=== PATIENT | female | born 1970 | race Caucasian/White ===

== ENCOUNTER 2017-09-05 09:15 | Inpatient (IN) | payer BC ==
[~2017-09-05] VITALS: Ht 162.6 cm; Wt 75.1 kg
[2017-09-05 09:22] VITALS: BP_SYST 122
[2017-09-05 10:01] LABS: BILIRUBIN,URINE NEGATIVE (NEGATIVE); BLOOD, URINE NEGATIVE (NEGATIVE); CLARITY/URINE CLEAR (CLEAR); COLOR,URINE YELLOW (YELLOW); GLUCOSE,URINE NEGATIVE (NEGATIVE); KETONES,URINE NEGATIVE (NEGATIVE); LEUKOCYTE ESTERASE ,URINE NEGATIVE (NEGATIVE); NITRITE, URINE NEGATIVE (NEGATIVE); PROTEIN URINE NEGATIVE (NEGATIVE); UROBILINOGEN,URINE 0.2 (0.2-1.0)
[2017-09-05 10:24] LABS: HEMATOCRIT 32.7 % (36-48); HEMOGLOBIN 11.1 g/dL (12.0-16.0); MEAN CORPUSCULAR HEMOGLOBIN 30 pg (27-31); MEAN CORPUSCULAR HGB CONC 34 % (32-36); MEAN CORPUSCULAR VOLUME 90 fL (79.0-98.0); PLATELET COUNT (AUTO) 423 K/uL (130-430); RED BLOOD CELL COUNT(AUTO) 3.65 MIL/uL (4.2-6.2); WHITE BLOOD COUNT (AUTO) 4.5 K/uL (4.8-10.8)
[2017-09-05 10:27] LABS: PROTHROMBIN TIME 10.1 SECS (9.5-12.5)
[2017-09-05 10:29] LABS: CALCIUM 8.8 mg/dL (8.4-11.0); CREATININE 0.77 mg/dL (0.55-1.30); POTASSIUM 3.7 mmol/L (3.5-5.1)
[2017-09-05 10:33] LABS: ALBUMIN 3.7 g/dL (3.4-4.8); TOTAL BILIRUBIN 0.4 mg/dL (0.0-1.0)
[2017-09-05] MEDS ORDERED: PANTOPRAZOLE SODIUM 40 MG/VIAL (PROTONIX) IVP ONE (10:45)
[2017-09-05 10:53] LABS: BAND % (MANUAL) 3 % (0-6); BASOPHILS % (MANUAL) 0 % (0-2); EOSINOPHILS % (MANUAL) 3 % (0-7); LYMPHOCYTES % (MANUAL) 29 % (20-46); MONOCYTES % (MANUAL) 7 % (0-11)
[2017-09-05] MEDS ORDERED: SUCR1ORA2 PO (11:01)
[2017-09-05] MEDS ORDERED: HYDR-1189 PO (11:02)
[2017-09-05] MEDS ORDERED: CYCL-10 PO (11:02)
[2017-09-05 12:58] VITALS: BP_SYST 131
[2017-09-05] MEDS ORDERED: CYCLOBENZAPRINE HCL 10 MG TABLET (FLEXERIL) PO PRN (14:30)
[2017-09-05] MEDS ORDERED: HYDROcodone/ACETAMIN 5-325 MG TAB (NORCO/ VICODIN) PO PRN (14:30)
[2017-09-05] MEDS ORDERED: LACTULOSE 20 GM/30 ML UDC PO ONE (15:15)
[2017-09-05] MEDS ORDERED: ONDANSETRON HCL 4 MG/2 ML VIAL IVP PRN (15:15)
[2017-09-05] MEDS: SUCRALFATE 1 GM/10 ML UDC PO SCH ×2 (16:23→20:25)
[2017-09-05] MEDS ORDERED: MAGNESIUM CITRATE 300 ML ORAL SOLUTION PO ONE (19:45)
[2017-09-05 20:00] VITALS: BP_SYST 120
[2017-09-05] MEDS: PANTOPRAZOLE GRANULES PACKET 40 MG GT SCH (20:25)
[2017-09-06 00:14] VITALS: BP_SYST 120
[2017-09-06] MEDS: MORPHINE 4 MG/ML INJ. SYRINGE IVP PRN ×2 (00:30→07:28)
[2017-09-06 06:27] LABS: BASOPHILS % (AUTO) 0.8 % (0.0-2.0); EOSINOPHILS # (AUTO) 0.2 K/uL (0.0-0.4); EOSINOPHILS % (AUTO) 3.6 % (0.0-4.0); HEMATOCRIT 32.9 % (36-48); HEMOGLOBIN 11.3 g/dL (12.0-16.0); LYMPHOCYTES # (AUTO) 1.8 K/uL (1.0-5.5); LYMPHOCYTES % (AUTO) 39.8 % (20.5-51.5); MEAN CORPUSCULAR HEMOGLOBIN 31 pg (27-31); MEAN CORPUSCULAR HGB CONC 35 % (32-36); MEAN CORPUSCULAR VOLUME 89 fL (79.0-98.0); MONOCYTES # (AUTO) 0.3 K/uL (0.0-1.0); MONOCYTES % (AUTO) 7.2 % (1.7-9.3); NEUTROPHILS # (AUTO) 2.3 K/uL (1.8-7.7); NEUTROPHILS % (AUTO) 48.6 % (40.0-70.0); PLATELET COUNT (AUTO) 423 K/uL (130-430); RED BLOOD CELL COUNT(AUTO) 3.69 MIL/uL (4.2-6.2); RED CELL DISTRIBUTION WIDTH 12.9 % (9.0-15.0); WHITE BLOOD COUNT (AUTO) 4.6 K/uL (4.8-10.8)
[2017-09-06 06:40] LABS: CALCIUM 8.6 mg/dL (8.4-11.0); CREATININE 0.81 mg/dL (0.55-1.30); POTASSIUM 3.3 mmol/L (3.5-5.1)
[2017-09-06 08:00] VITALS: BP_SYST 134
[2017-09-06] MEDS: SUCRALFATE 1 GM/10 ML UDC PO SCH ×3 (09:00→21:33)
[2017-09-06] MEDS: PANTOPRAZOLE GRANULES PACKET 40 MG GT SCH ×2 (09:00→21:35)
[2017-09-06] MEDS ORDERED: SIMETHICONE 40 MG/0.6 ML ML ONE (09:33)
[2017-09-06 12:50] VITALS: BP_SYST 123
[2017-09-06] MEDS: MIDAZOLAM HCL 5 MG/5 ML VIAL ONE ×5 (15:25→15:36)
[2017-09-06] MEDS: MEPERIDINE HCL/PF 100 MG/ML AMP ONE ×3 (15:25→15:34)
[2017-09-06] MEDS ORDERED: LUBIPROSTONE 24 MCG CAPSULE PO ONE (15:45)
[2017-09-06 16:34] VITALS: BP_SYST 126
[2017-09-06] MEDS: MINERAL OIL 30 ML UDC PO SCH ×2 (18:10→23:43)
[2017-09-06 20:15] VITALS: BP_SYST 156
[2017-09-06] MEDS: LUBIPROSTONE 24 MCG CAPSULE PO SCH (21:00)
[2017-09-07 01:29] VITALS: BP_SYST 97
[2017-09-07] MEDS: MINERAL OIL 30 ML UDC PO SCH (06:25)
[2017-09-07 07:28] LABS: BASOPHILS % (AUTO) 0.6 % (0.0-2.0); EOSINOPHILS # (AUTO) 0.1 K/uL (0.0-0.4); EOSINOPHILS % (AUTO) 2.6 % (0.0-4.0); HEMATOCRIT 33.8 % (36-48); HEMOGLOBIN 11.4 g/dL (12.0-16.0); LYMPHOCYTES # (AUTO) 1.3 K/uL (1.0-5.5); LYMPHOCYTES % (AUTO) 25.3 % (20.5-51.5); MEAN CORPUSCULAR HEMOGLOBIN 30 pg (27-31); MEAN CORPUSCULAR HGB CONC 34 % (32-36); MEAN CORPUSCULAR VOLUME 88 fL (79.0-98.0); MONOCYTES # (AUTO) 0.4 K/uL (0.0-1.0); MONOCYTES % (AUTO) 7.7 % (1.7-9.3); NEUTROPHILS # (AUTO) 3.5 K/uL (1.8-7.7); NEUTROPHILS % (AUTO) 63.8 % (40.0-70.0); PLATELET COUNT (AUTO) 429 K/uL (130-430); RED BLOOD CELL COUNT(AUTO) 3.86 MIL/uL (4.2-6.2); RED CELL DISTRIBUTION WIDTH 12.9 % (9.0-15.0); WHITE BLOOD COUNT (AUTO) 5.3 K/uL (4.8-10.8)
[2017-09-07 07:46] LABS: CALCIUM 8.6 mg/dL (8.4-11.0); CREATININE 0.75 mg/dL (0.55-1.30); POTASSIUM 3.8 mmol/L (3.5-5.1)
[2017-09-07 08:04] VITALS: BP_SYST 122
[2017-09-07] MEDS ORDERED: PANT40TA4 PO (08:31)
[2017-09-07] MEDS: SUCRALFATE 1 GM/10 ML UDC PO SCH (08:41)
[2017-09-07] MEDS: PANTOPRAZOLE GRANULES PACKET 40 MG GT SCH (08:41)
[2017-09-07] MEDS: LUBIPROSTONE 24 MCG CAPSULE PO SCH (08:42)
[2017-09-07] MEDS ORDERED: MINERAL OIL 30 ML UDC PO ONE (09:45)
[2017-09-07 10:09] VITALS: BP_SYST 122
== END 2017-09-07 11:30 | disposition home or self-care (01) | DRG 384 ==
LOC: SED 09:15 → SMU 12:44
PROVIDERS: ADMIT Internal Medicine; ATTEND Internal Medicine
PROC: 0DB78ZX Excision of Stomach, Pylorus, Via Natural or Artificial Opening Endoscopic, Diagnostic (ICD-10-PCS; principal; 2017-09-06 14:00)
DX: K26.9 Duodenal ulcer, unspecified as acute or chronic, without hemorrhage or perforation (principal); F11.20 Opioid dependence, uncomplicated; B02.29 Other postherpetic nervous system involvement; K25.4 Chronic or unspecified gastric ulcer with hemorrhage; E86.0 Dehydration; G62.9 Polyneuropathy, unspecified; K44.9 Diaphragmatic hernia without obstruction or gangrene; K59.09 Other constipation; G89.29 Other chronic pain; Z90.49 Acquired absence of other specified parts of digestive tract; Z88.0 Allergy status to penicillin; Z88.1 Allergy status to other antibiotic agents; Z85.3 Personal history of malignant neoplasm of breast; Z90.13 Acquired absence of bilateral breasts and nipples; Z83.3 Family history of diabetes mellitus; Z82.0 Family history of epilepsy and other diseases of the nervous system; Z87.11 Personal history of peptic ulcer disease; Z85.72 Personal history of non-Hodgkin lymphomas
CPT/HCPCS: 36415; 43239; 71045; 80048; 80053; 81003; 82941; 83605; 83690-TC; 85007; 85025; 85027; 85610-TC; 87081; 88305; 88312; 88313; 93005; 96374; 99285; C9113; J2175; J2250; J2270; J2405

== ENCOUNTER 2021-10-29 13:23 | Emergency (ER) | payer BC ==
[~2021-10-29 13:23] MED LIST: CYCL10TA24 PO; HYDR-3919 PO; PANT40TA45 PO; SUCR1ORA2 PO
--- NOTE | 2021-10-29 13:36 | NUR ---
Pt presents to the ER Bib self, CC Neck Pain. / Pt pain R/t cervical herniation and arthritic pain. Pt denies N/V, skin intact, VSS, BP moderate 151/99 Pt states takes BP medicine in the evening. Pt respirations even and unlabored. Pt noted Cervical Epidural procedure was cancelled this morning. Procedure preparation ordered hold of Celebrex exascerbating patient inflammation in neck area. PMHx Arthritis RX Celebrex was held previous 5 days in preparation for Cervical Epidural Injection procedure.
--- NOTE | 2021-10-29 13:41 | NUR ---
Patient to ER bed 08 to gown for evaluation. Side rails up.
--- NOTE | 2021-10-29 14:38 | NUR ---
ER at bedside examining patient.
[2021-10-29] MEDS ORDERED: KETOROLAC TROMETHAMINE 60 MG/2 ML VIAL IM ONE ×2 (14:45→14:56)
[2021-10-29] MEDS ORDERED: HYDROcodone/ACETAMIN 10-325 MG TAB PO ONE (14:45)
[2021-10-29] MEDS ORDERED: KETOROLAC TROMETHAMINE 15 MG VIAL ONE (14:51)
[2021-10-29] MEDS ORDERED: HYDR-3917 PO (14:56)
--- NOTE | 2021-10-29 15:03 | NUR ---
Pt is comfortable and resting in bed with lights off.
[2021-10-29 15:10] VITALS: BP_SYST 151
--- NOTE | 2021-10-29 15:10 | NUR ---
Patient given written and verbal discharge instructions and verbalizes understanding. ER MD discussed with patient the results and treatment provided. Patient in stable condition. ID arm band removed. Opportunity for questions provided and answered. Medication side effect fact sheet provided.
== END 2021-10-29 15:10 | disposition home or self-care (01) ==
LOC: SED 13:23
DX: M54.2 Cervicalgia (principal); G89.29 Other chronic pain; R51.9 Headache, unspecified; I10 Essential (primary) hypertension; Z88.0 Allergy status to penicillin; Z88.1 Allergy status to other antibiotic agents; Z88.8 Allergy status to other drugs, medicaments and biological substances; Z79.899 Other long term (current) drug therapy
CPT/HCPCS: 99283; 96372; J1885